=== PATIENT | female | born 1995 | race Caucasian/White ===

== ENCOUNTER 2024-07-22 16:42 | Emergency (ER) | payer BC, SELFPAY ==
[2024-07-22 16:48] VITALS: BP 148/82
[2024-07-22 17:03] LABS: % Basophils 0.7 % (0-2); % Eosinophils 0.8 % (0-6); % Immature Granulocytes 0.7 % (0-0.5); % Lymphocytes 22.2 % (20.5-51.1); % Monocytes 5.9 % (1.7-9.3); % Neutrophils 69.7 % (42.2-75.2); Absolute Basophils 0.1 10^3/uL (0-0.2); Absolute Eosinophils 0.1 10^3/uL (0-0.7); Absolute Immature Granulocytes 0.1 10^3/uL (0-0.05); Absolute Lymphocytes 2.3 10^3/uL (1.2-3.4); Absolute Monocytes 0.6 10^3/uL (0.1-0.6); Absolute Neutrophils 7.1 10^3/uL (1.4-6.5); Hematocrit 40.7 % (37.0-47.0); Hemoglobin 14.1 g/dL (12.0-16.0); Mean Corp Hgb Conc. 34.6 g/dL (33.0-37.0); Mean Corpuscular Hgb 29.4 pg (27.0-31.0); Mean Corpuscular Volume 84.8 fL (81.0-99.0); Mean Platelet Volume 9.1 fL (7.4-10.4); Nucleated Red Blood Cells % 0 %; Platelet Count 347 10^3/uL (130-400); Red Cell Dist. Width 12.7 % (11.5-14.5); White Blood Cell Count 10.2 10^3/uL (4.8-10.8)
[2024-07-22 17:21] LABS: HCG, Serum Qualitative Screen Positive
[2024-07-22 17:22] LABS: ALT (SGPT) 19 U/L (0-35); AST (SGOT) 22 U/L (14-36); Albumin 4.2 g/dl (3.5-5.0); Alkaline Phosphatase 66 U/L (38-126); Blood Urea Nitrogen 12 mg/dl (7-17); Calcium 9.4 mg/dl (8.4-10.2); Carbon Dioxide 27 mmol/L (22-30); Chloride 107 mmol/L (98-107); Glucose 105 mg/dl (70-99); Potassium 3.9 mmol/L (3.5-5.1); Sodium 142 mmol/L (135-145); Total Bilirubin 0.5 mg/dl (0.2-1.3); Total Protein 7.3 g/dl (6.3-8.2); eGFR > 60.00
--- NOTE | 2024-07-22 17:56 | ED.GENMED ---
History of Present Illness
General
Chief Complaint: Problems
Source: patient
Exam Limitations: none
Time Seen by Provider: 07/22/24 17:25
Nursing documentation reviewed up to this point in time: agreed with
History of Present Illness
History of Present Illness:
pt is a 28 y/o F
approx 7 weeks preg
h/o DVT on lovenox during pregnancies;
2 days ago pt started having bleeding and pelvic pain
went to [facility] ED where her OB/GYNE is and she had testing showing beta 4931 and US showing small empty cystic like sac/structure within the endometrium; ovaries looked normal
she was told she was having a miscarriage and to f/u with [facility]
has appt in 2 days with OB
in the meantime, she has had some bleeding - DIFFERENT THAN TRIAGE NOTE, NOT SEVERE AT ALL PT SAYS
she has not used more than 2 pads today
but does pass clots at times and has had more pain which is what brought her here, hwich radiates to her back
took tylenol this mornig, motrin at 130 pm
pain is 8/10
no urinary sypmtoms
Past History
Past History
ED Past Medical History: Other (DVT)
ED Past Surgical History: Appendectomy
Phy Exam
Physical Exam
Physical Exam:
GENERAL: Alert , in no apparent distress
EYE: pupils equal and reactive
NECK: Supple
ENT: o/p clr, mmm.
CARDIAC: Regular rate and rhythm .not tachy
LUNGS: Clear breath sounds bilaterally, no acute respiratory distress, no wheezes/rales/rhonchi
ABDOMEN: Soft, without focal tenderness, no r/g, no cvat, normal bowel sounds
gu: no significant tendenress
mild blood in vault
uterus/cervix posterior but closed os appreciated
no tenderness;
NEUROLOGICAL: Alert and oriented, no focal neuro deficits
SKIN: Warm and dry, skin intact.
MUSCULOSKELETAL: No edema, well perfused. neg sunil's sign
PSYCH: Normal and appropriate interaction.
Course
Orders/Labs/Results
Orders:
Orders
07/22/24 16:51
Test Result ONCE
07/22/24 16:54
Type+Screen Urgent
Beta HCG Quantitative Urgent
Is this a screen?: No
Complete Blood Count/With Diff Urgent
Comprehensive Metabolic Panel Urgent
HCG, Serum Qualitative Screen Urgent
07/22/24 17:54
Add On- LAB Urgent
Tests Added?: beta quantitative
0.9% Sodium Chloride 1000 ml [Nss] 1,000 ml IV BOLUS
Acetaminophen [Tylenol] 1,000 mg PO NOW STA
US W Transvaginal Urgent
Comment: had us 2 days ago showing empty sac;
Reason For Exam: 7wk preg; bleed; pain to back; eval ectopic
07/22/24 18:00
ABO2 Routine
BBK Wristband Number:
Associate notified that ABO2 has been ordered: [id number]
Date: 07/22/24
Time: 17:04
Independent Distributor ID: [id number]
07/22/24 20:21
Ketorolac [Toradol] 15 mg IV NOW STA
Abnormal Lab Results
07/22/24
16:54
Abs Immat Gran (auto) 0.1 H 10^3/uL
(0-0.05)
Absolute Neuts (auto) 7.1 H 10^3/uL
(1.4-6.5)
Immature Gran % 0.7 H %
(0-0.5)
Glucose 105 H mg/dl
(70-99)
07/22/24 16:54
07/22/24 16:54
Vital Signs
Initial and Last Documented VS:
Initial Vital Signs
Temp Pulse Resp BP Pulse Ox
36.6 C 83 16 148/82 100
07/22/24 16:48 07/22/24 16:48 07/22/24 16:48 07/22/24 16:48 07/22/24 16:48
Last Documented Vital Signs
Temp Pulse Resp BP Pulse Ox
36.6 C 83 16 128/76 98
07/22/24 16:48 07/22/24 16:48 07/22/24 16:48 07/22/24 20:00 07/22/24 20:30
Information
Weeks gestation: N/A
Location: N/A
MDM/Problems Addressed
Differential Diagnosis Includes:
miscarriage, DUB, anemia, retained prodcuts
MDM/Problems Addressed:
28 y/o F
on lovenox due to dvt previously
prophylaxis during preg
went to an outside hospital 2 days ago with pain an dvag bleeding
there was apparently a gest sac that was empty in the uterus; ovaries looked normal; i reviewed this information on pt's portal via her cell phone
her beta was around 4500 then
hg was normal
she was discharged, but told to continue the lovenox for now
pt has had a little more bleeding tonight than previous with aamir pain
NOTE THE TRIAGE NOTE SAYS SEVERE BLEEDING AND SEVERE PAIN AND THIS PATIENT DENEID BOTH TO ME
she has only used 2 pads today
on exam mild to mod blood in vault
stable vitals
hg 14
beta downtrending to 1000
a+
jus shows no sac in the uterus; ovaries normal
thickened endometrium, may still have products
she sees outside OB/GYNE and has appt in 2 days
she is stable at thie time
pt will need f/u with trending beta
and if bleeding picks up maybe intervention but for now ok to d/c home
*Critical Care Note
Total Time (30-74mins, 75-104mins- exclusive of procedures): Not Applicable
ED Attending Note
-
Portions of this chart may have been created with voice recognition software.� Occasional wrong word or��sound alike� substitutions may have occurred due to the inherent limitations of voice recognition software.
Discharge Plan
Departure
Patient Disposition: Home (Routine Discharge)
Date of Disposition: 07/22/24
Time of Disposition: 20:18
Patient with high blood pressure during this ER visit?: No
Condition: Fair
Covid-19: Not Applicable
Discharge Problem:
Miscarriage
Instructions: Miscarriage (DC)
Prescriptions:
New
hydrocodone-acetaminophen 5-325 mg tablet
1 tab PO Q8H PRN (Reason: Pain) Qty: 5 0RF
Activity Restrictions/Additional Instructions:
YOUR HORMONE LEVEL IS DOWNTRENDING AND YOUR ULTRASOUND NO LONGER SHOWS THE SAC THAT WAS SEEN ON YOUR PREVIOUS ULTRASOUND
INDICATING THAT YOU HAVE MISCARRIED
YOUR BETA NEEDS TO BE REPEATED TO BE SURE IT COMES DOWN
IF YOUR BLEEDING CONTINUES YOU MAY NEED FURTHER TREATMENT
WATCH YOUR BLEEDING CLOSELY
TAKE TYLENOL 3 TIME S ADAY, MOTRIN EVERY 8 HOURS
AND YOU CAN TAKE A VICODIN 1 TAB EVERY 8 HOURS ASNEEDED FOR MORE SEVERE PAIN
TAKE COLACE TO AVOID CONSTIPATION
RETURN FOR: FEVER, CHILLS, VOMITING, SEVERE PAIN, BLEEDING MORE THAN 1 PAD PER HOUR FOR 2 HOURS IN A ROW OR MORE
OR ANY CONCERNS.
Interventions
Interventions:
*Risk Screen - Suicide Last Done: 07/22/24 17:31
*General Assessment Last Done: 07/22/24 17:31
*Neglect/Abuse Screening Last Done: 07/22/24 17:31
*ED- Fall Risk Assessment Last Done: 07/22/24 17:31
*ED COVID-19 Vaccine History Last Done: 07/22/24 17:31
*Nursing Disposition Last Done: 07/22/24 20:39
ED-Female Genitourinary Assessment Last Done: 07/22/24 17:31
Discharge Date and Time
Discharge Date/Time: 07/22/24 20:44
Print Language: SYRIAC
[2024-07-22 18:00] VITALS: BP 124/78
[2024-07-22] MEDS: NSS 1000 IV (18:00)
[2024-07-22] MEDS: TYLENOL 1000 MG PO (18:02)
[2024-07-22 19:00] VITALS: BP 122/75
[2024-07-22 20:00] VITALS: BP 128/76
[2024-07-22] MEDS: TORADOL 15 MG IV (20:35)
== END 2024-07-22 20:44 | disposition home or self-care (01) ==
LOC: EMR 16:42
PROVIDERS: Emergency Medicine; EMERGENCY PHYSICIAN Emergency Medicine
DX: O03.9 Complete or unspecified spontaneous abortion without complication (principal); Z86.718 Personal history of other venous thrombosis and embolism; Z79.01 Long term (current) use of anticoagulants
CPT/HCPCS: 96374; 96361; 99284; 76801; 76817; 80053; 84702; 84703; 85025; 86850; 86900; 86901